=== PATIENT | male | born 1975 | race Caucasian/White ===

== ENCOUNTER 2022-02-20 20:32 | Emergency (ER) | payer BC, OTHER ==
[2022-02-20] MEDS ORDERED: Lidocaine 1% 10 ML MDV INJECT ONE (22:17)
[2022-02-20] MEDS ORDERED: Iopamidol 612 MG/ML 100 ML Bottle IVPUSH ONE (22:46)
[2022-02-20 23:21] LABS: ANION GAP 12.7 mEq/L (7-13)
[2022-02-21] MEDS ORDERED: Amoxicillin/Clavulanate K 875-125 MG Tab PO ONE (00:28)
== END 2022-02-21 00:48 | disposition home or self-care (01) ==
LOC: DL.ED 20:32
DX: K61.0 Anal abscess (principal); Z88.5 Allergy status to narcotic agent
CPT/HCPCS: 36415; 46050; 74177; 80053; 83605; 85025; 86140; 99283; 99284; A9270; Q9967